=== PATIENT | female | born 1955 | race Caucasian/White ===

== ENCOUNTER → 2020-10-05 | Outpatient (CLI) | payer MEDICARE | LOC: KOH-I 09-22 11:30 | DX: F17.210 Nicotine dependence, cigarettes, uncomplicated (principal); R91.8 Other nonspecific abnormal finding of lung field | CPT/HCPCS: 71271 ==

== ENCOUNTER 2021-08-06 09:01 | Inpatient (IN) | payer MEDICARE ==
[~2021-08-06] VITALS: Ht 154.9 cm; Wt 79.4 kg
[~2021-08-06 09:01] MED LIST: AUGMENTIN 875-1 EACH PO
[2021-08-06 10:02] LABS: HEMOGLOBIN 15.6 gm/dl (12.3-15.3); RED BLOOD COUNT 5.05 M/UL (4.00-5.10); WHITE BLOOD COUNT 6.3 K/UL (4.5-11.0)
[2021-08-06 10:40] LABS: BUN/CREATININE RATIO 13 (0-10)
[2021-08-06] MEDS ORDERED: BENZONATATE100 MG PO (14:26)
[2021-08-06] MEDS ORDERED: SINGULAIR10 MG PO (14:27)
[2021-08-06] MEDS ORDERED: FLONASE ALLER15.8 ML (14:27)
[2021-08-06] MEDS ORDERED: LISINOPRIL-HCT1 EAC2 PO (14:27)
[2021-08-06] MEDS ORDERED: FISH OIL 1,0001 EAC1 PO (14:28)
[2021-08-06] MEDS ORDERED: DAILY VALUE1 EACH PO (14:28)
[2021-08-06] MEDS ORDERED: CALCIUM CARBON600 M1 PO (14:28)
[2021-08-07 07:39] LABS: RED BLOOD COUNT 4.67 M/UL (4.00-5.10); WHITE BLOOD COUNT 6.8 K/UL (4.5-11.0)
[2021-08-07 08:00] LABS: BUN/CREATININE RATIO 23 (0-10)
[2021-08-08 08:13] LABS: HEMOGLOBIN 13.5 gm/dl (12.3-15.3); RED BLOOD COUNT 4.51 M/UL (4.00-5.10); WHITE BLOOD COUNT 7.1 K/UL (4.5-11.0)
[2021-08-08 08:42] LABS: BUN/CREATININE RATIO 19 (0-10)
[2021-08-08] MEDS ORDERED: PROVENTIL HFA6.7 GM INH (14:28)
[2021-08-08] MEDS ORDERED: DEXAMETHASONE 44 MG PO (14:28)
== END 2021-08-08 18:27 | disposition home or self-care (01) | DRG 177 ==
LOC: ER1 09:01 → M/S 15:03 → CDU 15:03 → M/S 17:48
PROVIDERS: Internal Medicine Infectious Disease; Student in an Organized Health Care Education/Training Program; ADMIT Internal Medicine
PROC: 8E0ZXY6 Isolation (ICD-10-PCS; principal; 2021-08-07)
PROC: XW033E5 Introduction of Remdesivir Anti-infective into Peripheral Vein, Percutaneous Approach, New Technology Group 5 (ICD-10-PCS; 2021-08-07)
PROC: 3E0333Z Introduction of Anti-inflammatory into Peripheral Vein, Percutaneous Approach (ICD-10-PCS; 2021-08-07)
DX: U07.1 COVID-19 (principal); J12.82 Pneumonia due to coronavirus disease 2019; J96.01 Acute respiratory failure with hypoxia; J15.9 Unspecified bacterial pneumonia; E87.1 Hypo-osmolality and hyponatremia; J98.11 Atelectasis; F17.210 Nicotine dependence, cigarettes, uncomplicated; I10 Essential (primary) hypertension; E78.5 Hyperlipidemia, unspecified; J30.2 Other seasonal allergic rhinitis; T50.2X5A Adverse effect of carbonic-anhydrase inhibitors, benzothiadiazides and other diuretics, initial encounter; I49.8 Other specified cardiac arrhythmias; Z96.652 Presence of left artificial knee joint; Z79.899 Other long term (current) drug therapy; Z88.2 Allergy status to sulfonamides; Z71.6 Tobacco abuse counseling
CPT/HCPCS: 36415; 36600; 71045; 80048; 80053; 81001; 82550; 82553; 82803; 84484; 85025; 85027; 85652; 86140; 93005; 94640; 94760; 96374; 96375; 96376; 99285; J0248; J0456; J0696; J1100; J1650; J7030; J7050; Q9967; U0002

== ENCOUNTER → 2021-12-11 | Outpatient (CLI) | payer MEDICARE ==
[~2021-12-11] MED LIST changes: +BENZONATATE100 MG PO; +CALCIUM CARBON600 M1 PO; +DAILY VALUE1 EACH PO; +DEXAMETHASONE 44 MG PO; +FISH OIL 1,0001 EAC1 PO; +FLONASE ALLER15.8 ML; +LISINOPRIL-HCT1 EAC2 PO; +PROVENTIL HFA6.7 GM INH; +SINGULAIR10 MG PO
== END ==
LOC: KOH-I 11:21
DX: R06.02 Shortness of breath (principal)
CPT/HCPCS: 71046

== ENCOUNTER → 2022-01-22 | Outpatient (CLI) | payer MEDICARE | LOC: KOH-I 11:42 | DX: M25.562 Pain in left knee (principal) | CPT/HCPCS: 73562 ==